=== PATIENT | female | born 1955 | race Caucasian/White ===

== ENCOUNTER 2024-01-27 04:44 | Emergency (ER) | payer MEDICARE, OTHER ==
[2024-01-27 06:25] VITALS: BP 136/81; PULSE 76
== END 2024-01-27 06:25 ==
LOC: JD.ED 04:44
DX: R42 Dizziness and giddiness (principal); R61 Generalized hyperhidrosis; Z87.19 Personal history of other diseases of the digestive system; Z88.2 Allergy status to sulfonamides
CPT/HCPCS: 74019; 74019-26; 99284

== ENCOUNTER 2025-03-25 16:40 | Emergency (ER) | payer MEDICARE, OTHER ==
[2025-03-25 18:28] VITALS: BP 122/85; PULSE 70
== END 2025-03-25 18:20 | disposition home or self-care (01) ==
LOC: JD.ED 16:40
DX: J10.1 Influenza due to other identified influenza virus with other respiratory manifestations (principal); M25.511 Pain in right shoulder; Z88.2 Allergy status to sulfonamides; Z79.899 Other long term (current) drug therapy
CPT/HCPCS: 71045; 71045-26; 99283